=== PATIENT | female | born 1950 | race Caucasian/White ===

== ENCOUNTER 2023-11-23 18:35 | Observation (INO) | payer BC, MEDICARE ==
[~2023-11-23] VITALS: Ht 170.2 cm; Wt 85.9 kg
[2023-11-23] MEDS ORDERED: BISO5TAB14 PO (19:16)
[2023-11-23] MEDS ORDERED: ATOR80TA59 PO ×2 (19:16→23:03)
[2023-11-23] MEDS ORDERED: DILT180C78 PO (19:16)
[2023-11-23] MEDS ORDERED: LISI20TA33 PO (19:16)
[2023-11-23] MEDS ORDERED: ASPI81CH33 PO (19:16)
[2023-11-23 20:11] LABS: BLOOD UREA NITROGEN 15 MG/DL (9-23); CARBON DIOXIDE LEVEL 26 MMOL/L (20-31); CHLORIDE LEVEL 108 MMOL/L (98-107); CREATININE FOR GFR 0.73 MG/DL (0.55-1.30); GLOMERULAR FILTRATION RATE > 60.0 (>39); GLUCOSE, FASTING 98 MG/DL (74-106); POTASSIUM SERUM 4.4 MMOL/L (3.5-5.1); SODIUM LEVEL 140 MMOL/L (136-145)
[2023-11-23 20:20] LABS: BASO % 0.6 % (0.0-1.0); EOS # 0.1 10^3/uL (0.0-0.5); EOS % 2.3 % (0.0-3.0); HEMATOCRIT 39.6 % (36.0-47.0); HEMOGLOBIN 12.9 g/dl (12.0-15.5); LYMPH # 1.4 10^3/uL (1.5-5.0); LYMPH % 26.4 % (24.0-44.0); MEAN CORPUSCULAR HEMOGLOBIN 29.7 pg (27.0-33.0); MEAN CORPUSCULAR HGB CONC 32.6 g/dl (32.0-36.5); MEAN CORPUSCULAR VOLUME 91.2 fl (80.0-96.0); MONO # 0.5 10^3/uL (0.0-0.8); MONO % 9.7 % (2.0-8.0); NEUTROPHILS # 3.1 10^3/uL (1.5-8.5); NEUTROPHILS % 60.4 % (36.0-66.0); PLATELET COUNT, AUTOMATED 185 10^3/uL (150-450); RED BLOOD COUNT 4.34 10^6/uL (4.00-5.40); WHITE BLOOD COUNT 5.2 10^3/uL (4.0-10.0)
[2023-11-23] MEDS: cefTRIAXone SOD 1 GM in D5W MINI-BAG PLUS 50 ML IV ONE (21:26)
[2023-11-23 21:56] LABS: C REACTIVE PROTEIN QUANTITATIV < 0.40 MG/DL (<1.0)
[2023-11-23 21:57] LABS: ALBUMIN 3.8 G/DL (3.2-5.2); ALKALINE PHOSPHATASE 100 U/L (46-116); ALT/SGPT 14 U/L (7.0-40); AST/SGOT 11 U/L (<34); BILIRUBIN,DIRECT 0.1 MG/DL (<0.4); BILIRUBIN,TOTAL 0.4 MG/DL (0.3-1.2)
[2023-11-23 21:59] LABS: VITAMIN B12 LEVEL 252 PG/ML (211-911)
[2023-11-23 22:00] LABS: THYROID STIMULATING HORMONE 1.149 uIU/ML (0.55-4.78)
[2023-11-23] MEDS ORDERED: DILT180C95 PO (23:03)
[2023-11-23] MEDS ORDERED: ASPI-615 PO (23:03)
[2023-11-23] MEDS ORDERED: HOME MED LIST COMPLETE! XX SCH (23:05)
[2023-11-23] MEDS: NS 1,000 ML IV SCH (23:30)
[2023-11-23] MEDS: CYANOCOBALAMIN 500 MCG TAB PO ONE (23:50)
[2023-11-24 06:17] LABS: HEMATOCRIT 43.1 % (36.0-47.0); HEMOGLOBIN 13.4 g/dl (12.0-15.5); MEAN CORPUSCULAR HEMOGLOBIN 29.1 pg (27.0-33.0); MEAN CORPUSCULAR HGB CONC 31.1 g/dl (32.0-36.5); MEAN CORPUSCULAR VOLUME 93.5 fl (80.0-96.0); PLATELET COUNT, AUTOMATED 175 10^3/uL (150-450); RED BLOOD COUNT 4.61 10^6/uL (4.00-5.40); WHITE BLOOD COUNT 5.8 10^3/uL (4.0-10.0)
[2023-11-24 06:44] LABS: ALBUMIN 3.6 G/DL (3.2-5.2); ALKALINE PHOSPHATASE 105 U/L (46-116); ALT/SGPT 15 U/L (7.0-40); AST/SGOT < 8 U/L (<34); BILIRUBIN,TOTAL 0.5 MG/DL (0.3-1.2); BLOOD UREA NITROGEN 14 MG/DL (9-23); CALCIUM LEVEL 9.1 MG/DL (8.3-10.6); CARBON DIOXIDE LEVEL 28 MMOL/L (20-31); CHLORIDE LEVEL 107 MMOL/L (98-107); CREATININE FOR GFR 0.71 MG/DL (0.55-1.30); GLOMERULAR FILTRATION RATE > 60.0 (>39); GLUCOSE, FASTING 84 MG/DL (74-106); MAGNESIUM LEVEL 1.8 MG/DL (1.8-2.4); SODIUM LEVEL 140 MMOL/L (136-145); TOTAL PROTEIN 6.8 G/DL (5.7-8.2)
[2023-11-24 06:58] LABS: PROCALCITONIN 0.06 ng/ml
[2023-11-24] MEDS: cefTRIAXone SOD 1 GM in D5W MINI-BAG PLUS 50 ML IV SCH (09:11)
[2023-11-24] MEDS: CYANOCOBALAMIN 500 MCG TAB PO SCH (09:12)
[2023-11-24] MEDS: bisoproloL fumarate 5 MG TAB PO SCH (09:17)
[2023-11-24] MEDS: DOCUSATE SODIUM 100MG CAPSULE PO SCH (09:17)
[2023-11-24] MEDS: ENOXAPARIN 40MG/0.4ML SYRINGE (J1650 PER 10MG) SC SCH (09:18)
[2023-11-24] MEDS: ASPIRIN 81MG ENTERIC TABLET PO SCH (09:19)
[2023-11-24 15:00] VITALS: BP 128/80; TEMP 97.9; O2SAT 94
[2023-11-24 19:49] VITALS: BP 125/77; TEMP 97.9; O2SAT 93
[2023-11-24] MEDS: NYSTATIN 100,000 UNITS/GM TOPICAL PWD 15GM TOP SCH (20:26)
[2023-11-24] MEDS: ATORVASTATIN 20 MG TAB PO SCH (20:26)
[2023-11-25 03:48] VITALS: BP 126/78; TEMP 97.7; O2SAT 97
[2023-11-25] MEDS: ACETAMINOPHEN TAB 650MG DOSE (2X325MG) PO PRN (09:20)
[2023-11-25 12:00] VITALS: BP 115/58; TEMP 97.7; O2SAT 91
[2023-11-25 20:10] VITALS: BP 125/75; TEMP 97.9; O2SAT 94
[2023-11-25] MEDS: SERTRALINE HCL 25 MG TABLET PO SCH (20:54)
[2023-11-26 04:00] VITALS: BP 125/74; TEMP 97.7; O2SAT 92
[2023-11-26 06:29] LABS: HEMOGLOBIN 13.5 g/dl (12.0-15.5); MEAN CORPUSCULAR HGB CONC 31.4 g/dl (32.0-36.5); MEAN CORPUSCULAR VOLUME 92.3 fl (80.0-96.0); PLATELET COUNT, AUTOMATED 188 10^3/uL (150-450); RED BLOOD COUNT 4.66 10^6/uL (4.00-5.40); WHITE BLOOD COUNT 4.8 10^3/uL (4.0-10.0)
[2023-11-26] MEDS: CEFDINIR 300 MG CAP (OMNICEF) PO SCH (10:02)
[2023-11-26 19:20] VITALS: BP 122/74; TEMP 97.9; O2SAT 93
[2023-11-27 03:10] VITALS: BP 119/61; TEMP 97.7; O2SAT 95
[2023-11-27 12:00] VITALS: BP 128/72; TEMP 97.8; O2SAT 97
[2023-11-27 20:00] VITALS: BP 116/62; TEMP 97.5; O2SAT 97
[2023-11-28 04:50] VITALS: BP 135/79; TEMP 97.9; O2SAT 95
[2023-11-28 12:00] VITALS: BP 138/89; TEMP 97.3; O2SAT 98
[2023-11-28 20:00] VITALS: BP 115/59; TEMP 97.3; O2SAT 98
[2023-11-29 04:00] VITALS: BP 141/80; TEMP 97.7; O2SAT 95
[2023-11-29 06:28] LABS: HEMATOCRIT 43.1 % (36.0-47.0); HEMOGLOBIN 13.3 g/dl (12.0-15.5); MEAN CORPUSCULAR HEMOGLOBIN 28.7 pg (27.0-33.0); MEAN CORPUSCULAR HGB CONC 30.9 g/dl (32.0-36.5); MEAN CORPUSCULAR VOLUME 92.9 fl (80.0-96.0); PLATELET COUNT, AUTOMATED 191 10^3/uL (150-450); RED BLOOD COUNT 4.64 10^6/uL (4.00-5.40); WHITE BLOOD COUNT 4.9 10^3/uL (4.0-10.0)
[2023-11-29 12:24] VITALS: BP 124/75; TEMP 98.1; O2SAT 96
[2023-11-29 19:52] VITALS: BP 123/73; TEMP 97.5; O2SAT 95
[2023-11-30 03:30] VITALS: BP 149/78; TEMP 97.5; O2SAT 97
[2023-11-30 12:25] VITALS: BP 123/76; TEMP 97.9; O2SAT 96
[2023-11-30 21:40] VITALS: BP 124/76; TEMP 97.7; O2SAT 95
[2023-12-01 04:16] VITALS: BP 124/77; TEMP 97.7; O2SAT 97
[2023-12-01 12:00] VITALS: BP 121/71; TEMP 97.7; O2SAT 98
[2023-12-01 20:00] VITALS: BP 124/73; TEMP 97.7; O2SAT 96
[2023-12-02 04:00] VITALS: BP 139/80; TEMP 97.7; O2SAT 98
[2023-12-02 06:17] LABS: HEMATOCRIT 39.3 % (36.0-47.0); HEMOGLOBIN 12.7 g/dl (12.0-15.5); MEAN CORPUSCULAR HEMOGLOBIN 29.4 pg (27.0-33.0); MEAN CORPUSCULAR HGB CONC 32.3 g/dl (32.0-36.5); PLATELET COUNT, AUTOMATED 175 10^3/uL (150-450); RED BLOOD COUNT 4.32 10^6/uL (4.00-5.40); WHITE BLOOD COUNT 4.9 10^3/uL (4.0-10.0)
[2023-12-02 13:00] VITALS: BP 136/85; TEMP 97.7; O2SAT 98
[2023-12-02 20:00] VITALS: BP 133/68; TEMP 97.5; O2SAT 98
[2023-12-03 04:00] VITALS: BP 128/73; TEMP 97.7; O2SAT 94
[2023-12-03 12:00] VITALS: BP 133/85; TEMP 97.5; O2SAT 90
[2023-12-03 20:29] VITALS: BP 132/83; TEMP 97.9; O2SAT 96
[2023-12-04 04:00] VITALS: BP 128/80; TEMP 97.9; O2SAT 97
[2023-12-04 12:00] VITALS: BP 144/89; TEMP 97.7; O2SAT 97
[2023-12-04 19:51] VITALS: BP 115/65; TEMP 97.3; O2SAT 94
[2023-12-05 04:02] VITALS: BP 143/57; TEMP 97.7; O2SAT 95
[2023-12-05 06:06] LABS: HEMATOCRIT 37.2 % (36.0-47.0); MEAN CORPUSCULAR HEMOGLOBIN 29.3 pg (27.0-33.0); MEAN CORPUSCULAR HGB CONC 32.3 g/dl (32.0-36.5); MEAN CORPUSCULAR VOLUME 90.7 fl (80.0-96.0); PLATELET COUNT, AUTOMATED 175 10^3/uL (150-450); WHITE BLOOD COUNT 5.6 10^3/uL (4.0-10.0)
[2023-12-05 12:00] VITALS: BP 129/75; TEMP 97.9; O2SAT 94
[2023-12-05 20:01] VITALS: BP 131/76; TEMP 97.7; O2SAT 94
[2023-12-06 03:34] VITALS: BP 137/93; TEMP 97.5; O2SAT 94
[2023-12-06 12:00] VITALS: BP 128/83; TEMP 97.9; O2SAT 99
[2023-12-06 19:57] VITALS: BP 135/80; TEMP 97.9; O2SAT 95
[2023-12-07 04:34] VITALS: BP 135/79; TEMP 97.9; O2SAT 97
[2023-12-07 12:00] VITALS: BP 126/74; TEMP 97.9; O2SAT 93
[2023-12-07 19:41] VITALS: BP 126/74; TEMP 97.7; O2SAT 96
[2023-12-08 04:00] VITALS: BP 127/75; TEMP 97.6; O2SAT 95
[2023-12-08 12:00] VITALS: BP 125/73; TEMP 97.7; O2SAT 96
[2023-12-08 20:00] VITALS: BP 124/72; TEMP 97.5; O2SAT 96
[2023-12-09 05:00] VITALS: BP 138/91; TEMP 97.5; O2SAT 96
[2023-12-09 05:38] VITALS: BP 138/91; TEMP 97.5; O2SAT 96
[2023-12-09 08:10] LABS: BASO % 0.7 % (0.0-1.0); EOS # 0.1 10^3/uL (0.0-0.5); EOS % 2.9 % (0.0-3.0); HEMATOCRIT 39.3 % (36.0-47.0); HEMOGLOBIN 12.5 g/dl (12.0-15.5); LYMPH # 1.3 10^3/uL (1.5-5.0); LYMPH % 28.9 % (24.0-44.0); MEAN CORPUSCULAR HEMOGLOBIN 29.3 pg (27.0-33.0); MEAN CORPUSCULAR HGB CONC 31.8 g/dl (32.0-36.5); MONO # 0.4 10^3/uL (0.0-0.8); MONO % 8.4 % (2.0-8.0); NEUTROPHILS # 2.6 10^3/uL (1.5-8.5); NEUTROPHILS % 58.4 % (36.0-66.0); PLATELET COUNT, AUTOMATED 175 10^3/uL (150-450); RED BLOOD COUNT 4.27 10^6/uL (4.00-5.40); WHITE BLOOD COUNT 4.5 10^3/uL (4.0-10.0)
[2023-12-09 08:34] LABS: ALBUMIN 3.3 G/DL (3.2-5.2); ALKALINE PHOSPHATASE 91 U/L (46-116); ALT/SGPT 28 U/L (7.0-40); AST/SGOT 8 U/L (<34); BILIRUBIN,TOTAL 0.5 MG/DL (0.3-1.2); BLOOD UREA NITROGEN 10 MG/DL (9-23); CALCIUM LEVEL 8.8 MG/DL (8.3-10.6); CARBON DIOXIDE LEVEL 27 MMOL/L (20-31); CHLORIDE LEVEL 109 MMOL/L (98-107); GLOMERULAR FILTRATION RATE > 60.0 (>39); GLUCOSE, FASTING 88 MG/DL (74-106); MAGNESIUM LEVEL 1.8 MG/DL (1.8-2.4); POTASSIUM SERUM 3.9 MMOL/L (3.5-5.1); SODIUM LEVEL 143 MMOL/L (136-145); TOTAL PROTEIN 6.1 G/DL (5.7-8.2)
[2023-12-09 12:00] VITALS: BP 137/72; TEMP 97.9; O2SAT 95
[2023-12-09 20:09] VITALS: BP 118/68; TEMP 97.9; O2SAT 94
[2023-12-10 04:43] VITALS: BP 124/71; TEMP 97.3; O2SAT 95
[2023-12-10 12:00] VITALS: BP 117/66; TEMP 97.5; O2SAT 95
[2023-12-10 20:22] VITALS: BP 121/70; TEMP 97.7; O2SAT 95
[2023-12-11 05:02] VITALS: BP 152/89; TEMP 97.5; O2SAT 96
[2023-12-11 12:00] VITALS: BP 122/68; TEMP 97.7; O2SAT 95
[2023-12-11 20:00] VITALS: BP 123/68; TEMP 97.9; O2SAT 96
[2023-12-12 04:00] VITALS: BP 154/70; TEMP 97; O2SAT 94
[2023-12-12 09:18] VITALS: BP 145/86
[2023-12-12 12:00] VITALS: BP 139/85; TEMP 98.1; O2SAT 93
[2023-12-12] MEDS ORDERED: SERT25TA21 PO (12:28)
== END 2023-12-12 14:13 ==
LOC: EDBD 18:35 → M ED 18:35 → M ED INP 21:21 → INTOOBSV 21:21 → M MSPAV 11-24 15:04
PROVIDERS: ADMIT Preventive Medicine Undersea and Hyperbaric Medicine; ATTEND Family Medicine
DX: N39.0 Urinary tract infection, site not specified (principal); B96.20 Unspecified Escherichia coli [E. coli] as the cause of diseases classified elsewhere; G93.41 Metabolic encephalopathy; R41.82 Altered mental status, unspecified; F03.90 Unspecified dementia, unspecified severity, without behavioral disturbance, psychotic disturbance, mood disturbance, and anxiety; I10 Essential (primary) hypertension; E78.5 Hyperlipidemia, unspecified; F32.A Depression, unspecified; K59.00 Constipation, unspecified; L30.4 Erythema intertrigo; Z79.899 Other long term (current) drug therapy; Z79.82 Long term (current) use of aspirin
CPT/HCPCS: 36415; 80048; 80053; 80076; 81001; 82607; 83735; 84145; 84443; 85025; 85027; 86140; 87088; 87186; 87426; 96361; 96365; 96372; 96376; 97161; 97165; 97530; 99285; G0378; J0696; J1650

== ENCOUNTER → 2023-12-14 | Outpatient (REF) ==
[~2023-12-14] MED LIST: ASPI-615 PO; ASPI81CH33 PO; ATOR80TA59 PO; BISO5TAB14 PO; DILT180C78 PO; DILT180C95 PO; LISI20TA33 PO; SERT25TA21 PO
== END ==
LOC: SKLAB8 15:09
PROVIDERS: ATTEND Internal Medicine
DX: Z53.8 Procedure and treatment not carried out for other reasons (principal)

== ENCOUNTER → 2023-12-15 | Outpatient (REF) ==
[2023-12-15 11:47] LABS: BASO % 0.3 % (0.0-1.0); EOS # 0.1 10^3/uL (0.0-0.5); HEMATOCRIT 41.5 % (36.0-47.0); HEMOGLOBIN 13.1 g/dl (12.0-15.5); LYMPH # 1.3 10^3/uL (1.5-5.0); LYMPH % 20.3 % (24.0-44.0); MEAN CORPUSCULAR HGB CONC 31.6 g/dl (32.0-36.5); MONO # 0.4 10^3/uL (0.0-0.8); MONO % 5.9 % (2.0-8.0); NEUTROPHILS # 4.6 10^3/uL (1.5-8.5); PLATELET COUNT, AUTOMATED 208 10^3/uL (150-450); RED BLOOD COUNT 4.51 10^6/uL (4.00-5.40); WHITE BLOOD COUNT 6.5 10^3/uL (4.0-10.0)
[2023-12-15 12:28] LABS: ALBUMIN 3.7 G/DL (3.2-5.2); ALKALINE PHOSPHATASE 93 U/L (46-116); ALT/SGPT 32 U/L (7.0-40); AST/SGOT < 8 U/L (<34); BILIRUBIN,TOTAL 0.6 MG/DL (0.3-1.2); BLOOD UREA NITROGEN 17 MG/DL (9-23); CALCIUM LEVEL 10.1 MG/DL (8.3-10.6); CARBON DIOXIDE LEVEL 28 MMOL/L (20-31); CHLORIDE LEVEL 108 MMOL/L (98-107); CREATININE FOR GFR 0.72 MG/DL (0.55-1.30); GLOMERULAR FILTRATION RATE > 60.0 (>39); GLUCOSE, FASTING 140 MG/DL (74-106); POTASSIUM SERUM 4.4 MMOL/L (3.5-5.1); SODIUM LEVEL 142 MMOL/L (136-145); TOTAL PROTEIN 6.7 G/DL (5.7-8.2)
== END ==
LOC: SKLAB8 07:01
PROVIDERS: ATTEND Internal Medicine
DX: R41.82 Altered mental status, unspecified (principal)

== ENCOUNTER → 2023-12-19 | Outpatient (REF) | payer MEDICARE | LOC: SKLAB8 07:00 | PROVIDERS: ATTEND Internal Medicine | DX: R30.0 Dysuria (principal) ==

== ENCOUNTER → 2024-01-26 | Outpatient (REF) | payer MEDICARE ==
[2024-01-26 10:01] LABS: HEMATOCRIT 40.7 % (36.0-47.0); HEMOGLOBIN 12.7 g/dl (12.0-15.5); MEAN CORPUSCULAR HEMOGLOBIN 29.1 pg (27.0-33.0); MEAN CORPUSCULAR HGB CONC 31.2 g/dl (32.0-36.5); MEAN CORPUSCULAR VOLUME 93.3 fl (80.0-96.0); PLATELET COUNT, AUTOMATED 203 10^3/uL (150-450); RED BLOOD COUNT 4.36 10^6/uL (4.00-5.40); WHITE BLOOD COUNT 5.4 10^3/uL (4.0-10.0)
[2024-01-26 10:31] LABS: ALBUMIN 3.5 G/DL (3.2-5.2); ALKALINE PHOSPHATASE 99 U/L (46-116); ALT/SGPT 12 U/L (7.0-40); AST/SGOT < 8 U/L (<34); BILIRUBIN,TOTAL 0.5 MG/DL (0.3-1.2); BLOOD UREA NITROGEN 11 MG/DL (9-23); CALCIUM LEVEL 9.7 MG/DL (8.3-10.6); CARBON DIOXIDE LEVEL 28 MMOL/L (20-31); CHLORIDE LEVEL 107 MMOL/L (98-107); CHOLESTEROL LEVEL 140 MG/DL (<200); CHOLESTEROL RISK RATIO 2.84 (<5); CREATININE FOR GFR 0.77 MG/DL (0.55-1.30); GLOMERULAR FILTRATION RATE > 60.0 (>39); GLUCOSE, FASTING 123 MG/DL (74-106); HDL CHOLESTEROL 49.2 MG/DL (>40); LDL CHOLESTEROL 67.6 MG/DL (<100); NON-HDL-C 90.8 MG/DL; POTASSIUM SERUM 4.4 MMOL/L (3.5-5.1); SODIUM LEVEL 141 MMOL/L (136-145); TOTAL PROTEIN 6.7 G/DL (5.7-8.2); TRIGLYCERIDES LEVEL 116 MG/DL (<150)
== END ==
LOC: SKLAB8 07:01
PROVIDERS: ATTEND Internal Medicine
DX: I10 Essential (primary) hypertension (principal); E78.5 Hyperlipidemia, unspecified

== ENCOUNTER → 2024-04-11 | Outpatient (REF) | payer MEDICARE ==
[2024-04-11 15:08] LABS: BASO % 0.2 % (0.0-1.0); EOS % 0.7 % (0.0-3.0); HEMOGLOBIN 13.7 g/dl (12.0-15.5); LYMPH # 0.7 10^3/uL (1.5-5.0); LYMPH % 12.5 % (24.0-44.0); MEAN CORPUSCULAR HEMOGLOBIN 29.3 pg (27.0-33.0); MEAN CORPUSCULAR HGB CONC 32.6 g/dl (32.0-36.5); MEAN CORPUSCULAR VOLUME 89.9 fl (80.0-96.0); MONO # 0.3 10^3/uL (0.0-0.8); MONO % 4.9 % (2.0-8.0); NEUTROPHILS # 4.5 10^3/uL (1.5-8.5); NEUTROPHILS % 81.2 % (36.0-66.0); PLATELET COUNT, AUTOMATED 184 10^3/uL (150-450); RED BLOOD COUNT 4.67 10^6/uL (4.00-5.40); WHITE BLOOD COUNT 5.5 10^3/uL (4.0-10.0)
[2024-04-11 15:28] LABS: ALBUMIN 3.6 G/DL (3.2-5.2); ALKALINE PHOSPHATASE 73 U/L (35-104); ALT/SGPT 13 U/L (7.0-40); AST/SGOT < 8 U/L (<34); BILIRUBIN,TOTAL 0.3 MG/DL (0.3-1.2); BLOOD UREA NITROGEN 23 MG/DL (9-23); CALCIUM LEVEL 9.7 MG/DL (8.3-10.6); CARBON DIOXIDE LEVEL 24 MMOL/L (20-31); CHLORIDE LEVEL 105 MMOL/L (98-107); CREATININE FOR GFR 0.84 MG/DL (0.55-1.30); GLOMERULAR FILTRATION RATE > 60.0 (>39); GLUCOSE, FASTING 132 MG/DL (74-106); POTASSIUM SERUM 3.9 MMOL/L (3.5-5.1); SODIUM LEVEL 141 MMOL/L (136-145); TOTAL PROTEIN 7.2 G/DL (5.7-8.2)
[2024-04-11 22:49] LABS: KETONE, URINE AUTO RFX NEGATIVE (NEGATIVE); MUCUS, URINE RFX SMALL (NEGATIVE)
[2024-04-11 23:21] LABS: LEUKOCYTE ESTERASE UR AUTO RFX 3+ (NEGATIVE); NITRITE, URINE AUTO RFX POSITIVE (NEGATIVE)
== END ==
LOC: SKLAB8 13:58 → EEVIPCON 13:58
PROVIDERS: ATTEND Internal Medicine
DX: R53.1 Weakness (principal); R00.1 Bradycardia, unspecified

== ENCOUNTER → 2024-04-18 | Outpatient (REF) | payer MEDICARE ==
[2024-04-18 15:36] LABS: WHITE BLOOD COUNT 8.4 10^3/uL (4.0-10.0)
[2024-04-18 15:37] LABS: BASO % 0.2 % (0.0-1.0); EOS % 0.2 % (0.0-3.0); HEMATOCRIT 45.2 % (36.0-47.0); HEMOGLOBIN 14.8 g/dl (12.0-15.5); LYMPH # 1.1 10^3/uL (1.5-5.0); LYMPH % 12.7 % (24.0-44.0); MEAN CORPUSCULAR HGB CONC 32.7 g/dl (32.0-36.5); MEAN CORPUSCULAR VOLUME 88.6 fl (80.0-96.0); MONO # 0.8 10^3/uL (0.0-0.8); MONO % 9.3 % (2.0-8.0); NEUTROPHILS # 6.5 10^3/uL (1.5-8.5); NEUTROPHILS % 76.9 % (36.0-66.0); PLATELET COUNT, AUTOMATED 235 10^3/uL (150-450)
[2024-04-18 16:12] LABS: CALCIUM LEVEL 10.5 MG/DL (8.3-10.6); CREATININE FOR GFR 1.01 MG/DL (0.55-1.30); POTASSIUM SERUM 4.2 MMOL/L (3.5-5.1)
== END ==
LOC: SKLAB8 14:11
PROVIDERS: ATTEND Internal Medicine
DX: N39.0 Urinary tract infection, site not specified (principal)

== ENCOUNTER → 2024-04-22 | Outpatient (CLI) | payer MEDICARE ==
[~2024-04-22] MED LIST changes: +ACET-683 PO; +BISA10SU27 PR; +DILT90TA PO; +GOLD BOND POWDER TOP; +LACT20EL PO; +MOM30SS2 PO; +ZOLO100T PO
[2024-04-22 13:41] LABS: BASO # 0.1 10^3/uL (0.0-0.2); BASO % 0.5 % (0.0-1.0); EOS % 0.1 % (0.0-3.0); HEMATOCRIT 46.6 % (36.0-47.0); HEMOGLOBIN 15.3 g/dl (12.0-15.5); LYMPH # 1.2 10^3/uL (1.5-5.0); LYMPH % 13.2 % (24.0-44.0); MEAN CORPUSCULAR HEMOGLOBIN 29.5 pg (27.0-33.0); MEAN CORPUSCULAR HGB CONC 32.8 g/dl (32.0-36.5); MONO # 0.7 10^3/uL (0.0-0.8); MONO % 7.1 % (2.0-8.0); NEUTROPHILS # 7.3 10^3/uL (1.5-8.5); NEUTROPHILS % 78.1 % (36.0-66.0); PLATELET COUNT, AUTOMATED 249 10^3/uL (150-450); RED BLOOD COUNT 5.18 10^6/uL (4.00-5.40); WHITE BLOOD COUNT 9.3 10^3/uL (4.0-10.0)
[2024-04-22 14:13] LABS: ALBUMIN 4.3 G/DL (3.2-5.2); ALKALINE PHOSPHATASE 75 U/L (35-104); ALT/SGPT 11 U/L (7.0-40); AST/SGOT < 8 U/L (<34); BILIRUBIN,TOTAL 0.6 MG/DL (0.3-1.2); BLOOD UREA NITROGEN 25 MG/DL (9-23); C REACTIVE PROTEIN QUANTITATIV < 0.50 MG/DL (<1.0); CALCIUM LEVEL 9.8 MG/DL (8.3-10.6); CARBON DIOXIDE LEVEL 24 MMOL/L (20-31); CHLORIDE LEVEL 106 MMOL/L (98-107); CREATININE FOR GFR 0.87 MG/DL (0.55-1.30); GLOMERULAR FILTRATION RATE > 60.0 (>39); GLUCOSE, FASTING 125 MG/DL (74-106); POTASSIUM SERUM 4.2 MMOL/L (3.5-5.1); SODIUM LEVEL 143 MMOL/L (136-145); TOTAL PROTEIN 7.7 G/DL (5.7-8.2)
== END ==
LOC: M RAD 12:46
PROVIDERS: ATTEND Nurse Practitioner Family
DX: N39.0 Urinary tract infection, site not specified (principal); K59.00 Constipation, unspecified

== ENCOUNTER → 2024-04-22 | Outpatient (REF) | payer MEDICARE | LOC: SKLAB8 12:41 | PROVIDERS: ATTEND Internal Medicine | DX: Z53.9 Procedure and treatment not carried out, unspecified reason (principal) ==

== ENCOUNTER 2024-04-23 13:39 | Observation (INO) | payer MEDICARE ==
[~2024-04-23] VITALS: Ht 170.2 cm; Wt 84.1 kg
[~2024-04-23 13:39] MED LIST changes: -ACET-683 PO; -BISA10SU27 PR; -DILT90TA PO; -GOLD BOND POWDER TOP; -LACT20EL PO; -MOM30SS2 PO; -ZOLO100T PO
[2024-04-23] MEDS: METOCLOPRAMIDE INJ 10MG/2ML VIAL IV ONE (14:44)
[2024-04-23] MEDS: NS (Normal Saline) 0.9% 1,000 ML IV SCH (14:47)
[2024-04-23 14:58] LABS: BASO % 0.4 % (0.0-1.0); EOS # 0.1 10^3/uL (0.0-0.5); EOS % 0.6 % (0.0-3.0); HEMATOCRIT 44.6 % (36.0-47.0); HEMOGLOBIN 14.7 g/dl (12.0-15.5); LYMPH # 1.5 10^3/uL (1.5-5.0); LYMPH % 18.1 % (24.0-44.0); MEAN CORPUSCULAR HEMOGLOBIN 28.9 pg (27.0-33.0); MEAN CORPUSCULAR VOLUME 87.8 fl (80.0-96.0); MONO # 0.8 10^3/uL (0.0-0.8); MONO % 9.2 % (2.0-8.0); NEUTROPHILS % 71.1 % (36.0-66.0); PLATELET COUNT, AUTOMATED 223 10^3/uL (150-450); RED BLOOD COUNT 5.08 10^6/uL (4.00-5.40); WHITE BLOOD COUNT 8.5 10^3/uL (4.0-10.0)
[2024-04-23 15:14] LABS: LIPASE 45 U/L (12-53)
[2024-04-23 15:16] LABS: ALKALINE PHOSPHATASE 71 U/L (35-104); ALT/SGPT 11 U/L (7.0-40); AST/SGOT 17 U/L (<34); BILIRUBIN,DIRECT 0.2 MG/DL (<0.4); BILIRUBIN,TOTAL 0.6 MG/DL (0.3-1.2); BLOOD UREA NITROGEN 22 MG/DL (9-23); CALCIUM LEVEL 10.1 MG/DL (8.3-10.6); CARBON DIOXIDE LEVEL 26 MMOL/L (20-31); CHLORIDE LEVEL 104 MMOL/L (98-107); GLOMERULAR FILTRATION RATE > 60.0 (>39); GLUCOSE, FASTING 119 MG/DL (74-106); POTASSIUM SERUM 4.9 MMOL/L (3.5-5.1); SODIUM LEVEL 139 MMOL/L (136-145); TOTAL PROTEIN 7.7 G/DL (5.7-8.2)
[2024-04-23] MEDS ORDERED: ISOVUE-370 76% 100ML VIAL As Ordered ONE (15:36)
[2024-04-23 15:40] LABS: KETONE, URINE AUTO RFX NEGATIVE (NEGATIVE); LEUKOCYTE ESTERASE UR AUTO RFX NEGATIVE (NEGATIVE); MUCUS, URINE RFX SMALL (NEGATIVE); NITRITE, URINE AUTO RFX NEGATIVE (NEGATIVE); RBC, URINE AUTO RFX 1 /HPF (0-3); SQUAM EPITHELIAL CELL UR AURFX 2 /HPF (0-6); WBC, URINE AUTO RFX 2 /HPF (0-3)
[2024-04-23] MEDS: PIPERACILLIN/TAZOBACTAM SOD 3.375 GM in DEXTROSE 5% (D5W) ADV/MINI-BAG 50 ML IV ONE (18:07)
[2024-04-23] MEDS ORDERED: GOLD BOND POWDER TOP (18:53)
[2024-04-23] MEDS ORDERED: ACET-683 PO (18:53)
[2024-04-23] MEDS ORDERED: BISA10SU27 PR (18:53)
[2024-04-23] MEDS ORDERED: LACT20EL PO (18:53)
[2024-04-23] MEDS ORDERED: MOM30SS2 PO (18:53)
[2024-04-23] MEDS ORDERED: ZOLO100T PO (18:53)
[2024-04-23] MEDS ORDERED: DILT90TA PO (18:55)
[2024-04-23] MEDS ORDERED: HOME MED LIST COMPLETE! XX SCH (19:00)
[2024-04-23] MEDS ORDERED: MAALOX 30 ML SUSP *UDC PO PRN (19:15)
[2024-04-23] MEDS: DOCUSATE SODIUM 100MG CAPSULE PO SCH (20:44)
[2024-04-23] MEDS: MIRALAX *UNIT DOSE* 17GM PACKET PO SCH (20:44)
[2024-04-23] MEDS ORDERED: MIRALAX *UNIT DOSE* 17GM PACKET PO SCH (21:00)
[2024-04-24] MEDS: PIPERACILLIN/TAZOBACTAM SOD 3.375 GM in DEXTROSE 5% (D5W) ADV/MINI-BAG 50 ML IV SCH (00:35)
[2024-04-24 08:00] LABS: HEMATOCRIT 39.9 % (36.0-47.0); HEMOGLOBIN 12.9 g/dl (12.0-15.5); MEAN CORPUSCULAR HEMOGLOBIN 29.5 pg (27.0-33.0); MEAN CORPUSCULAR HGB CONC 32.3 g/dl (32.0-36.5); MEAN CORPUSCULAR VOLUME 91.1 fl (80.0-96.0); PLATELET COUNT, AUTOMATED 177 10^3/uL (150-450); RED BLOOD COUNT 4.38 10^6/uL (4.00-5.40); WHITE BLOOD COUNT 6.9 10^3/uL (4.0-10.0)
[2024-04-24 08:40] LABS: ALBUMIN 3.3 G/DL (3.2-5.2); ALKALINE PHOSPHATASE 59 U/L (35-104); ALT/SGPT 10 U/L (7.0-40); AST/SGOT < 8 U/L (<34); BILIRUBIN,TOTAL 0.6 MG/DL (0.3-1.2); BLOOD UREA NITROGEN 15 MG/DL (9-23); CALCIUM LEVEL 8.8 MG/DL (8.3-10.6); CARBON DIOXIDE LEVEL 29 MMOL/L (20-31); CHLORIDE LEVEL 107 MMOL/L (98-107); CREATININE FOR GFR 0.84 MG/DL (0.55-1.30); GLOMERULAR FILTRATION RATE > 60.0 (>39); GLUCOSE, FASTING 111 MG/DL (74-106); SODIUM LEVEL 143 MMOL/L (136-145); TOTAL PROTEIN 6.4 G/DL (5.7-8.2)
[2024-04-24] MEDS: FLEET OIL RETENTION ENEMA PR PRN (11:40)
[2024-04-24] MEDS: MAGNESIUM CITRATE 300ML BTL PO ONE (17:35)
[2024-04-24] MEDS: FLEET ENEMA PR SCH (18:25)
[2024-04-24] MEDS: SENNA 8.6 MG TAB (SENOKOT) PO SCH (19:24)
[2024-04-25] MEDS: CIPROFLOXACIN 500MG TABLET PO SCH (09:52)
[2024-04-25] MEDS: metroNIDAZOLE (FLAGYL) 500MG TABLET PO SCH (09:52)
[2024-04-25] MEDS: ONDANSETRON 4MG 2ML VIAL IV PRN (11:09)
[2024-04-25 20:50] VITALS: BP 137/87; TEMP 97.7; O2SAT 97
[2024-04-26 03:49] VITALS: BP 138/87; TEMP 97.7; O2SAT 95
[2024-04-26] MEDS: ACETAMINOPHEN 325 MG TAB PO PRN (10:08)
[2024-04-26 12:15] VITALS: BP 128/71; TEMP 97.2; O2SAT 95
[2024-04-26] MEDS ORDERED: CIPR500T39 PO (12:22)
[2024-04-26] MEDS ORDERED: MIRA33506 PO (12:22)
[2024-04-26] MEDS ORDERED: COLA100C5 PO (12:27)
== END 2024-04-26 13:22 ==
LOC: M ED 13:39 → EDBD 13:39 → M ED INP 13:40 → M MSPAV 04-25 20:53
PROVIDERS: ADMIT Student in an Organized Health Care Education/Training Program; ATTEND Student in an Organized Health Care Education/Training Program
DX: K59.09 Other constipation (principal); K57.32 Diverticulitis of large intestine without perforation or abscess without bleeding; F03.90 Unspecified dementia, unspecified severity, without behavioral disturbance, psychotic disturbance, mood disturbance, and anxiety; I10 Essential (primary) hypertension; E78.5 Hyperlipidemia, unspecified; F32.A Depression, unspecified; E86.0 Dehydration; I71.40 Abdominal aortic aneurysm, without rupture, unspecified; R33.9 Retention of urine, unspecified; R11.10 Vomiting, unspecified; Z90.79 Acquired absence of other genital organ(s); Z79.899 Other long term (current) drug therapy
CPT/HCPCS: 36415; 51701; 74177; 80048; 80053; 80076; 81001; 83605; 83690; 85025; 85027; 87426; 93005; 93041; 96361; 96365; 96366; 96375; 96376; 99285; G0378; J2405; J2543; J2765; Q9967

== ENCOUNTER → 2024-04-29 | Outpatient (CLI) | payer MEDICARE ==
[~2024-04-29] MED LIST changes: +ACET-683 PO; +BISA10SU27 PR; +CIPR500T39 PO; +COLA100C5 PO; +DILT90TA PO; +GOLD BOND POWDER TOP; +LACT20EL PO; +MIRA33506 PO; +MOM30SS2 PO; +ZOLO100T PO
== END ==
LOC: M RAD 15:23
PROVIDERS: ATTEND Nurse Practitioner Family
DX: R10.9 Unspecified abdominal pain (principal); K59.00 Constipation, unspecified

== ENCOUNTER → 2024-04-29 | Outpatient (REF) | payer MEDICARE ==
[2024-04-29 16:36] LABS: BASO # 0.1 10^3/uL (0.0-0.2); BASO % 0.5 % (0.0-1.0); EOS % 0.4 % (0.0-3.0); HEMATOCRIT 46.1 % (36.0-47.0); HEMOGLOBIN 14.7 g/dl (12.0-15.5); LYMPH # 1.1 10^3/uL (1.5-5.0); LYMPH % 10.9 % (24.0-44.0); MEAN CORPUSCULAR HEMOGLOBIN 29.3 pg (27.0-33.0); MEAN CORPUSCULAR HGB CONC 31.9 g/dl (32.0-36.5); MONO # 0.6 10^3/uL (0.0-0.8); MONO % 5.9 % (2.0-8.0); NEUTROPHILS # 8.6 10^3/uL (1.5-8.5); NEUTROPHILS % 81.5 % (36.0-66.0); PLATELET COUNT, AUTOMATED 251 10^3/uL (150-450); RED BLOOD COUNT 5.01 10^6/uL (4.00-5.40); WHITE BLOOD COUNT 10.5 10^3/uL (4.0-10.0)
[2024-04-29 17:03] LABS: ALBUMIN 3.7 G/DL (3.2-5.2); ALKALINE PHOSPHATASE 68 U/L (35-104); ALT/SGPT 11 U/L (7.0-40); AST/SGOT < 8 U/L (<34); BILIRUBIN,TOTAL 0.5 MG/DL (0.3-1.2); BLOOD UREA NITROGEN 12 MG/DL (9-23); CARBON DIOXIDE LEVEL 29 MMOL/L (20-31); CHLORIDE LEVEL 107 MMOL/L (98-107); CREATININE FOR GFR 0.68 MG/DL (0.55-1.30); GLOMERULAR FILTRATION RATE > 60.0 (>39); GLUCOSE, FASTING 129 MG/DL (74-106); POTASSIUM SERUM 3.7 MMOL/L (3.5-5.1); SODIUM LEVEL 148 MMOL/L (136-145); TOTAL PROTEIN 7.5 G/DL (5.7-8.2)
== END ==
LOC: SKLAB8 15:00
PROVIDERS: ATTEND Internal Medicine
DX: R10.9 Unspecified abdominal pain (principal)

== ENCOUNTER 2024-05-01 09:38 | Emergency (ER) | payer MEDICARE ==
[2024-05-01 10:36] LABS: BASO % 0.3 % (0.0-1.0); EOS % 0.2 % (0.0-3.0); LYMPH # 0.9 10^3/uL (1.5-5.0); LYMPH % 9.4 % (24.0-44.0); MEAN CORPUSCULAR HEMOGLOBIN 29.4 pg (27.0-33.0); MEAN CORPUSCULAR HGB CONC 31.6 g/dl (32.0-36.5); MEAN CORPUSCULAR VOLUME 93.1 fl (80.0-96.0); MONO # 0.7 10^3/uL (0.0-0.8); MONO % 6.9 % (2.0-8.0); NEUTROPHILS # 8.2 10^3/uL (1.5-8.5); NEUTROPHILS % 82.4 % (36.0-66.0); PLATELET COUNT, AUTOMATED 217 10^3/uL (150-450); RED BLOOD COUNT 4.22 10^6/uL (4.00-5.40); WHITE BLOOD COUNT 9.9 10^3/uL (4.0-10.0)
[2024-05-01] MEDS ORDERED: LORazepam 2 MG/ML 1ML VIAL As Ordered ONE (10:40)
[2024-05-01 10:41] LABS: HEMATOCRIT 39.3 % (36.0-47.0); HEMOGLOBIN 12.4 g/dl (12.0-15.5)
[2024-05-01 10:48] LABS: VENOUS BASE EXCESS -1.1 (-2.0-2.0); VENOUS HCO3 24.2 MMOL/L (23.0-27.0); VENOUS O2 SATURATION 90.1 % (60.0-80.0); VENOUS PARTIAL PRESSURE O2 59.4 mmHg (30.0-50.0); VENOUS PH 7.369 UNITS (7.330-7.430); VENOUS STANDARD HCO3 23.4 MMOL/L; VENOUS TOTAL CO2 25.6 MMOL/L (24.0-28.0)
[2024-05-01 10:59] LABS: ETHYL ALCOHOL (ETHANOL) < 0.003 % (0.000-0.010)
[2024-05-01 11:00] LABS: SALICYLATE LEVEL < 3.0 MG/DL (<30)
[2024-05-01 11:03] LABS: THYROID STIMULATING HORMONE 0.861 uIU/ML (0.55-4.78)
[2024-05-01] MEDS ORDERED: ISOVUE-370 76% 100ML VIAL As Ordered ONE (11:06)
[2024-05-01 11:08] LABS: ALBUMIN 3.2 G/DL (3.2-5.2); ALKALINE PHOSPHATASE 63 U/L (35-104); ALT/SGPT 12 U/L (7.0-40); AST/SGOT 12 U/L (<34); BILIRUBIN,DIRECT 0.2 MG/DL (<0.4); BILIRUBIN,TOTAL 0.4 MG/DL (0.3-1.2); BLOOD UREA NITROGEN 9 MG/DL (9-23); CALCIUM LEVEL 8.6 MG/DL (8.3-10.6); CARBON DIOXIDE LEVEL 26 MMOL/L (20-31); CHLORIDE LEVEL 113 MMOL/L (98-107); CREATININE FOR GFR 0.61 MG/DL (0.55-1.30); GLOMERULAR FILTRATION RATE > 60.0 (>39); GLUCOSE, FASTING 100 MG/DL (74-106); POTASSIUM SERUM 4.1 MMOL/L (3.5-5.1); SODIUM LEVEL 146 MMOL/L (136-145); TOTAL PROTEIN 6.4 G/DL (5.7-8.2)
[2024-05-01] MEDS: NS (Normal Saline) 0.9% 1,000 ML IV SCH (11:18)
[2024-05-01] MEDS: LORazepam 2 MG/ML 1ML VIAL IV STA (11:18)
[2024-05-01] MEDS: dexAMETHasone 20MG/5ML VIAL IV ONE (11:27)
[2024-05-01] MEDS: levETIRAcetam INJection 1,000 MG in D5W 100 ML IV ONE (11:32)
[2024-05-01 12:01] LABS: KETONE, URINE AUTO RFX NEGATIVE (NEGATIVE); LEUKOCYTE ESTERASE UR AUTO RFX NEGATIVE (NEGATIVE); MUCUS, URINE RFX SMALL (NEGATIVE); NITRITE, URINE AUTO RFX NEGATIVE (NEGATIVE); RBC, URINE AUTO RFX 6 /HPF (0-3); SQUAM EPITHELIAL CELL UR AURFX 2 /HPF (0-6); WBC, URINE AUTO RFX 1 /HPF (0-3)
[2024-05-01 12:25] LABS: AMPHETAMINES LEVEL URINE NEGATIVE (NEGATIVE); BARBITURATES URINE NEGATIVE (NEGATIVE); BENZODIAZEPINES URINE NEGATIVE (NEGATIVE); COCAINE METABOLITE URINE NEGATIVE (NEGATIVE); METHADONE URINE NEGATIVE (NEGATIVE); OPIATES URINE NEGATIVE (NEGATIVE)
[2024-05-01 12:26] LABS: CANNABINOIDS URINE NEGATIVE (NEGATIVE); PHENCYCLIDINE URINE NEGATIVE (NEGATIVE)
[2024-05-01 13:23] LABS: OSMOLALITY SERUM 296 MOSM/KG (280-301)
[2024-05-01 15:30] VITALS: BP 166/74
[2024-05-01 15:36] VITALS: TEMP 97.1; O2SAT 97
== END 2024-05-01 15:47 | disposition short-term general hospital (02) ==
LOC: M ED 09:38 → EDBD 09:38 → M ED 15:47
DX: R90.0 Intracranial space-occupying lesion found on diagnostic imaging of central nervous system (principal); G40.89 Other seizures; I10 Essential (primary) hypertension; E78.5 Hyperlipidemia, unspecified; F32.A Depression, unspecified; Z79.1 Long term (current) use of non-steroidal anti-inflammatories (NSAID); Z79.899 Other long term (current) drug therapy
CPT/HCPCS: 36415; 70450; 70496; 70498; 71045; 80047; 80048; 80076; 80143; 80307; 81001; 82077; 82140; 82803; 83605; 83930; 84443; 85025; 87040; 87486; 87581; 87633; 87798; 93005; 93041; 94760; 96365; 96375; 99285; J1100; J1953; J2060; Q9967